=== PATIENT | male | born 1980 | race Caucasian/White ===

== ENCOUNTER 2022-11-04 20:51 | Emergency (ER) | payer MEDICAID ==
[~2022-11-04] VITALS: Ht 177.8 cm; Wt 105.7 kg
[2022-11-04 21:23] VITALS: BP 133/84
--- NOTE | 2022-11-04 21:26 | NUR ---
BIBS FROM HOME WITH CC OF PAIN AND SWELLING ON RIGHT LATERAL FOOT. PER PATIENT HE TWISTED HIS FOOT. PT IS ALERT, MAURITANIAN SPEAKING. ABLE TO MAKE NEEDS KNOWN. PLACED COMFORTABLY IN BED
[2022-11-04] MEDS ORDERED: IBUPROFEN 400 MG TABLET PO ONE (22:00)
[2022-11-04] MEDS ORDERED: IBUPROFEN 400 MG TABLET ONE (22:05)
== END 2022-11-04 23:37 | disposition home or self-care (01) ==
LOC: ER 20:55
DX: S92.354A Nondisplaced fracture of fifth metatarsal bone, right foot, initial encounter for closed fracture (principal); X50.1XXA Overexertion from prolonged static or awkward postures, initial encounter; Y93.89 Activity, other specified; Y92.89 Other specified places as the place of occurrence of the external cause; Y99.8 Other external cause status
CPT/HCPCS: 73630-TC